=== PATIENT | male | born 1985 | race African-American/Black ===

== ENCOUNTER 2018-06-25 12:58 | Emergency (ER) | payer SELFPAY ==
[2018-06-25] MEDS ORDERED: Acetaminophen 500 MG TAB ONE (13:44)
[2018-06-25] MEDS ORDERED: Ibuprofen 800 MG TAB ONE (13:44)
== END 2018-06-25 13:54 | disposition home or self-care (01) ==
LOC: ERS 12:58
DX: R51 Headache (principal); R73.03 Prediabetes; K21.9 Gastro-esophageal reflux disease without esophagitis; Z79.899 Other long term (current) drug therapy
CPT/HCPCS: 99283

== ENCOUNTER 2024-04-13 11:47 | Emergency (ER) | payer OTHER ==
[2024-04-13 12:48] LABS: Bacteria/HPF None Seen HPF (None Seen); Bilirubin Negative (Negative); Blood, Urine Negative (Negative); CAUTI Indications for Culture Pelvic or flank pain; Clarity Clear (Clear); Glucose, Urine (Dipstick) Normal (Negative); Ketone, Urine Negative (Negative); Leukocyte 75 Leu/uL (Negative); Nitrite Negative (Negative); Protein, Urine (Dipstick) Negative (Neg-Trace); RBC/HPF 0-3 HPF (0-3); Specific Gravity, Urine 1.022 (1.002-1.036); Squamous Epithelial 0-3 HPF (0-3); Urobilinogen Normal mg/dL (Less than 2)
[2024-04-13 12:50] LABS: Urine Culture Reflex No No
[2024-04-13] MEDS ORDERED: Ketorolac Tromethamine 30 MG (1 mL) VIAL ONE (13:28)
== END 2024-04-13 13:40 | disposition home or self-care (01) ==
LOC: ERS 11:47
DX: S39.012A Strain of muscle, fascia and tendon of lower back, initial encounter (principal); X50.0XXA Overexertion from strenuous movement or load, initial encounter; Y99.0 Civilian activity done for income or pay
CPT/HCPCS: 81001; 96372; 99283; J1885